=== PATIENT | male | born 1960 | race Caucasian/White ===

== ENCOUNTER → 2018-07-02 | Outpatient (CLI) | payer BC ==
[2018-07-02 10:56] LABS: HEMATOCRIT 44.2 % (42.0-52.0); HEMOGLOBIN 14.9 g/dL (13.5-18.0); MEAN PLATELET VOLUME 8.6 fl (7.4-10.4); RED BLOOD COUNT 4.98 M/mm3 (4.20-5.60); WHITE BLOOD COUNT 5.7 K/mm3 (4.8-10.8)
== END ==
LOC: RAD 10:26 → LAB 10:26
PROVIDERS: Family Medicine
DX: Z00.00 Encounter for general adult medical examination without abnormal findings (principal); Z12.12 Encounter for screening for malignant neoplasm of rectum; M19.012 Primary osteoarthritis, left shoulder; E78.00 Pure hypercholesterolemia, unspecified; R53.83 Other fatigue

== ENCOUNTER 2021-07-24 11:27 | Emergency (ER) | payer SELFPAY ==
[~2021-07-24] VITALS: Ht 180.3 cm; Wt 81.8 kg
[2021-07-24] MEDS ORDERED: ZYRTEC ALLERGY10 MG PO (11:43)
[2021-07-24] MEDS ORDERED: ZYRTEC10 M3 PO (11:44)
[2021-07-24] MEDS ORDERED: NORCO 325 MG-51 TA1 PO (12:18)
[2021-07-24 12:45] VITALS: BP 140/80
[2021-07-24 13:07] LABS: BASO # 0.02 K/mm3 (0.02-0.10); EOS # 0.27 K/mm3 (0.04-0.40); EOS % 5.2 % (0.0-4.0); HEMATOCRIT 43.6 % (42.0-52.0); HEMOGLOBIN 14.6 g/dL (13.5-18.0); LYMPH# 1.78 K/mm3 (1.50-4.00); MEAN CELL VOLUME 90 fl (78-100); MEAN CORPUSCULAR HEMOGLOBIN 30 pg (27-31); MEAN CORPUSCULAR HGB CONC 34 g/dL (33-37); MEAN PLATELET VOLUME 8.7 fl (7.4-10.4); MONO # 0.47 K/mm3 (0.20-0.80); NEU # 2.63 K/mm3 (1.40-6.50); PLATELET COUNT 281 K/mm3 (130-400); RED BLOOD COUNT 4.85 M/mm3 (4.20-5.60); RED CELL DISTRIBUTION WIDTH 12.5 % (11.5-14.5); WHITE BLOOD COUNT 5.2 K/mm3 (4.8-10.8)
[2021-07-24 13:09] LABS: ALBUMIN 4.1 g/dL (3.4-4.8); POTASSIUM 4.4 mmol/L (3.5-5.1)
[2021-07-24 13:10] LABS: CALCIUM 9.3 mg/dL (8.3-10.5)
[2021-07-24 13:12] LABS: TOTAL PROTEIN 6.8 g/dL (6.2-8.1)
[2021-07-24 13:13] LABS: TOTAL BILIRUBIN 0.6 mg/dL (0.2-1.2)
== END 2021-07-24 15:24 | disposition short-term general hospital (02) ==
LOC: ED 11:27
PROVIDERS: Family Medicine
DX: I24.9 Acute ischemic heart disease, unspecified (principal); E78.5 Hyperlipidemia, unspecified; R00.1 Bradycardia, unspecified; Z28.310 Unvaccinated for COVID-19

== ENCOUNTER → 2023-11-03 | Outpatient (CLI) | payer BC ==
[~2023-11-03] MED LIST: NORCO 325 MG-51 TA1 PO; ZYRTEC ALLERGY10 MG PO; ZYRTEC10 M3 PO
[2023-11-03 09:09] LABS: HEMATOCRIT 43.1 % (42.0-52.0); HEMOGLOBIN 14.6 g/dL (13.5-18.0); MEAN PLATELET VOLUME 8.1 fl (7.4-10.4); RED BLOOD COUNT 4.83 M/mm3 (4.20-5.60); RED CELL DISTRIBUTION WIDTH 12.5 % (11.5-14.5); WHITE BLOOD COUNT 5.8 K/mm3 (4.8-10.8)
[2023-11-03 09:15] LABS: ALBUMIN 4.2 g/dL (3.4-4.8)
[2023-11-03 09:16] LABS: CALCIUM 9.5 mg/dL (8.3-10.5)
[2023-11-03 09:18] LABS: TOTAL PROTEIN 6.8 g/dL (6.2-8.1)
[2023-11-03 09:20] LABS: TOTAL BILIRUBIN 0.5 mg/dL (0.2-1.2)
== END ==
LOC: LAB 08:57
PROVIDERS: Family Medicine
DX: Z12.5 Encounter for screening for malignant neoplasm of prostate (principal); I25.10 Atherosclerotic heart disease of native coronary artery without angina pectoris; E78.2 Mixed hyperlipidemia